=== PATIENT | male | born 1970 | race Caucasian/White ===

== ENCOUNTER 2017-01-22 00:53 | Emergency (ER) | payer OTHER ==
[~2017-01-22] VITALS: Ht 175.3 cm; Wt 75.0 kg
[~2017-01-22 00:53] MED LIST: CLIN150 PO; Z.0.NO CURRENT MEDS
[2017-01-22 01:07] VITALS: BP 158/87; PULSE 114; RESP 18; TEMP 98.1; O2SAT 98
[2017-01-22] MEDS ORDERED: TETANUS/DIPHTHERIA TOXOID ADULT 0.5 ML VIAL IM ONE (01:45)
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
== END 2017-01-22 02:48 ==
LOC: NEPC 00:53
DX: Z04.1 Encounter for examination and observation following transport accident (principal); R51 Headache; Z23 Encounter for immunization; V47.5XXA Car driver injured in collision with fixed or stationary object in traffic accident, initial encounter; V49.49XA Driver injured in collision with other motor vehicles in traffic accident, initial encounter
CPT/HCPCS: 70450; 71010; 72125; 90471; 90714